=== PATIENT | female | born 1985 | race Caucasian/White ===

== ENCOUNTER 2016-11-29 23:20 | Emergency (ER) | payer OTHER ==
[~2016-11-29] VITALS: Ht 175.3 cm; Wt 81.8 kg
[2016-11-30] VITALS: Ht 175.3 cm; Wt 81.8 kg
[2016-11-30] MEDS ORDERED: KETOROLAC 30 MG INJ IV STA (02:38)
--- NOTE | 2016-11-30 03:21 | RADRPT ---
PROCEDURE: LEFT ANKLE - 3 VIEWS CLINICAL INDICATION: 31-year-old female with left ankle pain. TECHNIQUE: AP, oblique and lateral views of the left ankle were performed. The images reviewed on a PACS workstation. COMPARISON: None. FINDINGS: The bones of the ankle appear intact, with no evidence of fracture, dislocation, or subluxation. The joint spaces are preserved. The mortise appears intact. Bone mineralization is within normal limits . Diffuse soft tissue swelling is present. IMPRESSION: 1. No acute fracture or dislocation. 2. Soft tissue swelling. .Amrit Winston MD, Date Time Electronically viewed and signed by .Amrit Winston MD, on 11/30/2016 03:21 .Saira/
[2016-11-30 03:28] LABS: ADD SCAN DIFF NO
[2016-11-30 03:31] LABS: BASOPHIL # 0.1 10^3/ul (0.0-0.1); BASOPHILS % 0.5 % (0.0-2.0); EOSINOPHILS # 0.4 10^3/ul (0.0-0.5); EOSINOPHILS % 4.2 % (0.0-7.0); HEMOGLOBIN 8.6 g/dl (12.0-16.0); LYMPHOCYTES # 1.7 10^3/ul (0.8-2.9); LYMPHOCYTES % 18.7 % (15.0-51.0); MEAN CORPUSCULAR HEMOGLOBIN 24.4 pg (29.0-33.0); MEAN CORPUSCULAR HGB CONC 29.7 g/dl (32.0-37.0); MEAN CORPUSCULAR VOLUME 82.2 fl (82.0-101.0); MEAN PLATELET VOLUME 8.2 fl (7.4-10.4); MONOCYTE # 0.6 10^3/ul (0.3-0.9); MONOCYTES % 6.5 % (0.0-11.0); NEUTROPHIL # 6.5 10^3/ul (1.6-7.5); NEUTROPHILS % 69.8 % (39.0-77.0); PLATELET COUNT 483 10^3/UL (140-415); RED BLOOD COUNT 3.53 10^6/ul (4.20-5.40); WHITE BLOOD COUNT 9.3 10^3/ul (4.8-10.8)
--- NOTE | 2016-11-30 03:36 | RADRPT ---
PROCEDURE: ULTRASOUND LEFT LOWER EXTREMITY VENOUS CLINICAL INDICATION: 31-year-old female with left lower extremity pain and swelling. TECHNIQUE: Multiple sonographic images of the left lower extremity deep venous system was obtained utilizing grayscale, color-flow, compressive sonography and doppler imaging with augmentation. The images were reviewed on a PACS workstation. COMPARISON: None. FINDINGS: There is normal compressibility and flow within the left common femoral, deep femoral, superficial f emoral, popliteal, posterior tibial and peroneal veins. IMPRESSION: No sonographic evidence for left lower extremity deep venous thrombosis. .Amrit Winston MD, MD Date Time Electronically viewed and signed by .Amrit Winston MD, on 11/30/2016 03:36 .Luc
--- NOTE | 2016-11-30 03:42 | ERD ---
ER Documentation Chief Complaint Date/Time DATE: 11/30/16 TIME: 03:39 Chief Complaint left ankle pain x 1 week s/p fall using cruntches HPI 31-year-old female presents here in emergency department for complaints of left ankle pain and swelling for 1 week now, patient was seen in a different emergency department one week ago, had mild swelling of the left ankle, had x- rays done and radiology exams done, was told to be normal, patient was given crutches to use, the next day, she was using crutches, she did not know how to use crutches, she landed on her left ankle, twisted the left ankle and now it is more swollen and painful. Patient described the pain as throbbing pain, 6/10 scale, is worse upon movement. Patient did not take any medications to help her symptoms. Patient denies any numbness or tingling. Patient denies any fever or chills. ROS All systems reviewed and are negative except as per history of present illness. Medications Home Meds Active Scripts Hydrocodone/Acetaminophen ([place] 5-325 Tablet) 1 Each Tablet, 1 TAB PO Q6H Y for SEVERE PAIN LEVEL 7-10, #20 TAB Prov:ANNELIESE JARVIS [employer] 11/30/16 Ibuprofen* (Motrin*) 600 Mg Tab, 600 MG PO Q6H Y for PAIN AND OR ELEVATED TEMP, #30 TAB Prov:ANNELIESE JARVIS [employer] 11/30/16 Reported Medications [none] Unknown Strength No Conflict Check 11/30/16 Allergies Allergies: Coded Allergies: No Known Allergy (Verified , 06/23/07) PMhx/Soc Medical and Surgical Hx: pt denies Medical Hx, pt denies Surgical Hx History of Surgery: No Anesthesia Reaction: No Hx Neurological Disorder: No Hx Respiratory Disorders: No Hx Cardiac Disorders: No Hx Psychiatric Problems: No Hx Miscellaneous Medical Probl: No Hx Alcohol Use: No Hx Substance Use: No Hx Tobacco Use: Yes Smoking Status: Light tobacco smoker FmHx Family History: No coronary disease, No diabetes, No other Physical Exam Vitals Vital Signs Date Time Temp Pulse Resp B/P Pulse Ox O2 Delivery O2 Flow Rate FiO2 11/30/16 00:00 98.1 103 18 116/76 100 Physical Exam GENERAL: The patient is well developed and appropriate for usual state of health, in no apparent distress. CHEST: Clear to auscultation bilaterally. There are no rales, wheezes or rhonchi. HEART: Regular rate and rhythm. No murmurs, clicks, rubs or gallops. No S3 or S4. ABDOMEN: Soft, nontender and nondistended. Good bowel sounds. No rebound or guarding. No gross peritonitis. No gross organomegaly or masses. No Bearden sign or McBurney point tenderness. BACK: No midline or flank tenderness. EXTREMITIES: Noted swelling on the lateral malleolus and tenderness on palpation of the left ankle. No redness noted. Negative Homans sign. Equal pulses bilaterally. Full range of motion about the joints of the body. Grossly neurovascularly intact. NEURO: Alert and oriented. Cranial nerves 2-12 intact. Motor strength in all 4 extremities with 5/5 strength. Sensation grossly intact. Normal speech and gait. SKIN: There is no apparent rash or petechia. The skin is warm and dry. HEMATOLOGIC AND LYMPHATIC: There is no evidence of excessive bruising or lymphedema. No gross cervical, axillary, or inguinal lymphadenopathy. Result Diagram: 11/30/16 0255 11/30/16 0255 Results 24 hrs Laboratory Tests Test 11/30/16 02:55 White Blood Count 9.310^3/ul Red Blood Count 3.5310^6/ul Hemoglobin 8.6g/dl Hematocrit 29.0% Mean Corpuscular Volume 82.2fl Mean Corpuscular Hemoglobin 24.4pg Mean Corpuscular Hemoglobin Concent 29.7g/dl Red Cell Distribution Width 15.0% Platelet Count 66012^3/UL Mean Platelet Volume 8.2fl Neutrophils % 69.8% Lymphocytes % 18.7% Monocytes % 6.5% Eosinophils % 4.2% Basophils % 0.5% Nucleated Red Blood Cells % 0.0/100WBC Neutrophils # 6.510^3/ul Lymphocytes # 1.710^3/ul Monocytes # 0.610^3/ul Eosinophils # 0.410^3/ul Basophils # 0.110^3/ul Nucleated Red Blood Cells # 0.010^3/ul Erythrocyte Sedimentation Rate 109mm/Hr Sodium Level 141mmol/L Potassium Level 3.3mmol/L Chloride Level 98mmol/L Carbon Dioxide Level 30mmol/L Anion Gap 16 Blood Urea Nitrogen 12mg/dl Creatinine 0.62mg/dl Glucose Level 87mg/dl Calcium Level 9.6mg/dl Total Bilirubin 0.0mg/dl Direct Bilirubin 0.00mg/dl Indirect Bilirubin 0.0mg/dl Aspartate Amino Transf (AST/SGOT) 18IU/L Alanine Aminotransferase (ALT/SGPT) 23IU/L Alkaline Phosphatase 113IU/L C-Reactive Protein 6.0mg/dl Total Protein 8.1g/dl Albumin 4.2g/dl Globulin 3.90g/dl Albumin/Globulin Ratio 1.07 Current Medications Medications (Trade) Dose Ordered Sig/Drake Route PRN Reason Start Time Stop Time Status Last Admin Dose Admin Ketorolac Tromethamine (Toradol) 30 mg ONCE STAT IV 11/30/16 02:38 11/30/16 02:41 DC 11/30/16 02:51 Patient was given medication for pain here in emergency department, after treatment, patient verbalized feeling much better. Patient's pain is improved. PROCEDURE: LEFT ANKLE - 3 VIEWS CLINICAL INDICATION: 31-year-old female with left ankle pain. TECHNIQUE: AP, oblique and lateral views of the left ankle were performed. The images reviewed on a PACS workstation. COMPARISON: None. FINDINGS: The bones of the ankle appear intact, with no evidence of fracture, dislocation , or subluxation. The joint spaces are preserved. The mortise appears intact. Bone mineralization is within normal limits. Diffuse soft tissue swelling is present. IMPRESSION: 1. No acute fracture or dislocation. 2. Soft tissue swelling. .Amrit Winston MD, MD Date Time Electronically viewed and signed by .Amrit Winston MD, on 11/30/2016 03:21 .M/ CC: ANNELIESE JARVIS NP PROCEDURE: ULTRASOUND LEFT LOWER EXTREMITY VENOUS CLINICAL INDICATION: 31-year-old female with left lower extremity pain and swelling. TECHNIQUE: Multiple sonographic images of the left lower extremity deep venous system was obtained utilizing grayscale, color-flow, compressive sonography and doppler imaging with augmentation. The images were reviewed on a PACS workstation. COMPARISON: None. FINDINGS: There is normal compressibility and flow within the left common femoral, deep femoral, superficial femoral, popliteal, posterior tibial and peroneal veins. IMPRESSION: No sonographic evidence for left lower extremity deep venous thrombosis. .Amrit Winston MD, MD Date Time Electronically viewed and signed by .Amrit Winston MD, MD on 11/30/2016 03:36 .M/ CC: ANNELIESE JARVIS NP After receiving patients xray report, a orthopedic boot was applied on the patients left foot. After application of the splint, patient has intact sensation and circulation on distal area of the affected joint. Patient does not complain of numbness or tingling after application of the splint. Patient tolerated procedure well. Patient was talked to Use crutches afterwards. Procedures/MDM Medical Decision Making: Patient's pain is most likely consistent with a left ankle sprain. There is no suspicion for neurovascular compromise. Patient has intact sensation and circulation of the affected extremity. There is low suspicion for septic arthritis. Patient does not have any fever. Radiology exams of the affected area does not show any fracture or dislocation. Patient's CBC shows microcytic anemia, but patient is not symptomatic. Patient was advised to follow with primary care doctor for this, for further evaluation. No active bleeding at this time. Disposition: Home. Patient is given prescription for ibuprofen for pain, [place] for severe pain. Patient was advised to elevate the affected area and apply ice on affected area. Patient was advised that if symptoms are worse, numbness, tingling, high fever, unable to move joint, worsening symptoms, to return to emergency department immediately. Otherwise, patient is advised to follow up with the primary care doctor in 5-7 days for reevaluation of symptoms. See orthopedic doctor for possible MRI to a ligament injury, use the orthopedic boot as prescribed. Departure Diagnosis: Primary Impression: Ankle pain Laterality: left Chronicity: acute Qualified Code: M25.572 - Acute left ankle pain Condition: Stable Patient Instructions: Sprain, Ankle, With X-Ray Additional Instructions: Patient is given prescription for ibuprofen for pain, [place] for severe pain. Patient was advised to elevate the affected area and apply ice on affected area. Patient was advised that if symptoms are worse, numbness, tingling, high fever, unable to move joint, worsening symptoms, to return to emergency department immediately. Otherwise, patient is advised to follow up with the primary care doctor in 5-7 days for reevaluation of symptoms. See orthopedic doctor for possible MRI to a ligament injury, use the orthopedic boot as prescribed. ANNELIESE JARVIS NP Nov 30, 2016 03:41
[2016-11-30 03:57] LABS: ALBUMIN 4.2 g/dl (3.3-4.9); ALBUMIN/GLOBULIN RATIO 1.07; CALCIUM 9.6 mg/dl (8.4-10.2); CREATININE 0.62 mg/dl (0.44-1.00); POTASSIUM 3.3 mmol/L (3.5-5.1); TOTAL PROTEIN 8.1 g/dl (6.1-8.1)
[2016-11-30] MEDS ORDERED: HYDR-906 PO (05:42)
[2016-11-30] MEDS ORDERED: IBUP-1542 PO (05:42)
== END 2016-11-30 06:05 | disposition home or self-care (01) ==
LOC: FTE 23:20
DX: M25.572 Pain in left ankle and joints of left foot (principal); F17.210 Nicotine dependence, cigarettes, uncomplicated
CPT/HCPCS: 73610; 80053; 85025; 85651; 86140; 93971; J1885; 96374